=== PATIENT | male | born 1945 | race Caucasian/White ===

== ENCOUNTER 2024-01-31 05:49 | Day surgery (SDC) | payer MEDICARE ==
[2024-01-26 10:17] LABS: BASOPHILS # (AUTO) 0.06 K/uL (0.00-0.20); BASOPHILS % (AUTO) 0.8 % (0.0-5.0); EOSINOPHILS # (AUTO) 0.23 K/uL (0.00-0.70); HEMATOCRIT 41.1 % (42-54); IMMATURE GRANULOCYTE ABSOLUTE 0.04 K/uL (0-1); LYMPHOCYTES # (AUTO) 1.5 K/uL (1.0-4.8); LYMPHOCYTES % (AUTO) 19.6 % (21.0-51.0); MEAN CORPUSCULAR HEMOGLOBIN 31.3 pg (27.0-33.0); MEAN CORPUSCULAR HGB CONC 33.1 g/dL (32.0-36.0); MEAN CORPUSCULAR VOLUME 94.7 fL (79-99); MONOCYTES % (AUTO) 12.5 % (3.0-13.0); NEUTROPHILS # (AUTO) 4.9 K/uL (1.8-7.7); NEUTROPHILS % (AUTO) 63.6 % (40.0-77.0); PLATELET COUNT (AUTO) 235 K/uL (130-400); RED BLOOD CELL COUNT(AUTO) 4.34 MIL/uL (4.50-6.20); RED CELL DISTRIBUTION WIDTH 12.5 % (11.0-15.5); WHITE BLOOD COUNT (AUTO) 7.6 K/uL (4.8-10.8)
[2024-01-26 10:18] VITALS: BP 140/77; PULSE 85; RESP 16
[2024-01-26 10:24] LABS: CREATININE 1.3 mg/dL (0.5-1.3); POTASSIUM 4.9 mmol/L (3.5-5.1)
[2024-01-26 10:57] LABS: INR 1.14 (0.85-1.15); PROTHROMBIN TIME 13.3 SEC (9.6-11.6)
[2024-01-31] VITALS (14 sets, daily range): BP systolic 119–143; BP diastolic 54–72; PULSE 57–71; RESP 14–17
[~2024-01-31] VITALS: Ht 170.2 cm; Wt 88.6 kg
[~2024-01-31 05:49] MED LIST: AEC81 PO; ASCO500C18 PO; ATOR40TA71 PO; CHOL200074 PO; CLOP-31 PO; FAMO20TA8 PO; FURO40TA5 PO; ISOS30TA92 PO; LEVO125T11 PO; LISI2.5T13 PO; METF-444 PO; METO-408 PO; MULT-60 PO; NITR0.4T50 SL; RANO10005 PO; SENN8.6T32 PO; SOTA80TA PO
[2024-01-31] MEDS: CEFAZOLIN SODIUM 2 GM VIAL ONE (06:14)
[2024-01-31] MEDS: LACTATED RINGERS 1000ML 1,000 ML IV ONE (06:15)
[2024-01-31] MEDS ORDERED: MIDAZOLAM HCL 1 MG/ML 2ML VIAL ONE (07:38)
[2024-01-31] MEDS ORDERED: ROCURONIUM BROMIDE 10MG/1ML 5ML VL ONE (07:38)
[2024-01-31] MEDS ORDERED: SUCCINYLCHOLINE CHLORIDE 20 MG/ML 10 ML VIAL ONE (07:38)
[2024-01-31] MEDS ORDERED: LIDOCAINE PF 100MG/5ML (2%) SYRINGE 5ML ONE (07:38)
[2024-01-31] MEDS ORDERED: PROPOFOL 10 MG/ML 20ML VIAL IV ONE (07:38)
[2024-01-31] MEDS ORDERED: FENTANYL CITRATE PF 50 MCG/1 ML 2ML VIAL ONE (07:38)
[2024-01-31] MEDS ORDERED: EPHEDRINE SULFATE 50 MG/ML AMPULE ONE (08:08)
[2024-01-31] MEDS: BUPIVACAINE/PF 0.25% 30ML VIAL IJ ONE (08:20)
[2024-01-31] MEDS: 0.9%NACL 1000ML 1,000 ML IV ONE (08:47)
[2024-01-31] MEDS ORDERED: TRAM50TA4 PO (08:55)
[2024-01-31] MEDS ORDERED: GABA-529 PO (08:55)
[2024-01-31] MEDS ORDERED: DOCU-116 PO (08:55)
== END 2024-01-31 10:30 | disposition home or self-care (01) ==
LOC: DAH 05:49
PROVIDERS: ATTEND Surgery
DX: C41.2 Malignant neoplasm of vertebral column (principal); Z79.01 Long term (current) use of anticoagulants; Z79.899 Other long term (current) drug therapy
CPT/HCPCS: 80048; 85025; 85610; 36415; 93005; 15733; 82948 ×2; 88305; A6260; J0665; A4663; J7030 ×2; J7120; J3010; J0330; J3490 ×2; J2001; J2250; J2704; J0690; A4930; A4215; A4223; A4222; A4221; A6450; A4600

== ENCOUNTER → 2024-08-27 | Outpatient (CLI) | payer MEDICARE ==
[~2024-08-27] MED LIST changes: +DOCU-116 PO; +GABA-529 PO; +TRAM50TA4 PO; +metoPROLOL tartRATE 1 MG/ML 5ML VIAL IV ONE
== END | disposition home or self-care (01) ==
LOC: RAH 10:32
PROVIDERS: ATTEND Internal Medicine Cardiovascular Disease
DX: I25.10 Atherosclerotic heart disease of native coronary artery without angina pectoris (principal); M47.815 Spondylosis without myelopathy or radiculopathy, thoracolumbar region; I35.0 Nonrheumatic aortic (valve) stenosis; Z95.1 Presence of aortocoronary bypass graft; Z98.890 Other specified postprocedural states
CPT/HCPCS: 75574; J3490

== ENCOUNTER → 2025-01-30 | Outpatient (CLI) | payer OTHER ==
[~2025-01-30] MED LIST changes: +IOHEXOL-350 75 ML VIAL IV ONE; -metoPROLOL tartRATE 1 MG/ML 5ML VIAL IV ONE
--- NOTE | 2025-01-30 16:07 | HMCIMG ---
CT ABDOMEN WITH CONTRAST INDICATION: Right upper abdominal pain TECHNIQUE: Routine transaxial images using 5 mm slice thickness were obtained after the intravenous infusion of 75 mL of Omnipaque 350 without adverse effects. Oral contrast was not administered. Rectal contrast was not administered. Coronal and sagittal reformatted images acquired for interpretation. CT was performed with one or more of the following dose reduction techniques: Automated exposure control, adjustment of the mA and/or kV according to patient size, or use of iterative reconstruction technique. COMPARISON: None FINDINGS: Heart size is normal. Visible lung bases are clear. 3.8 cm heterogeneously enhancing mass posterior to the liver just beneath the posterior margin of the right hemidiaphragm near the level of the right adrenal gland. The liver is normal in size and smooth in contour without lesions. Intrahepatic and extrahepatic biliary duct dilation. The spleen is normal in size without lesions. The gallbladder appears normal. Ill-defined pancreatic head mass perhaps measuring up to 3 cm. The adrenal glands appear normal. 4 mm nonobstructing calculus and smaller 3 mm nonobstructing calculus at the mid to upper portion of the left kidney. 4 mm nonobstructing calculus at the midportion of the left kidney with a few adjacent punctate nonobstructing calculi, and 16mm aggregate of nonobstructing calculi at the lower portion of the left kidney. 17 mm exophytic proteinaceous or hemorrhagic cyst arising off the lateral cortical margin of the left kidney at its midportion and smaller 10 mm exophytic proteinaceous or hemorrhagic cyst arising posterolaterally off the mid to lower portion of the right kidney. Cortical nephrograms are symmetric and normal in appearance bilaterally. No evidence for intra-abdominal free air or organized fluid collection. No retrocrural, intraabdominal, or retroperitoneal lymphadenopathy identified. Several diverticula along the distal colon. Mild calcific plaque is noted along the abdominal aortic and iliac vessel paredes without aneurysmal dilation or dissection. Visible osseous structures are intact. IMPRESSION: 1. Pancreatic head mass contributing to intrahepatic and extrahepatic biliary duct dilation as well as gallbladder distention, and also perhaps associated 3.8 cm heterogeneously-enhancing mass posterior to the right hepatic lobe near the dome of the liver. 2. Nonobstructing left nephrolithiasis. 3. 1.4 cm medial limb left adrenal gland nodule, perhaps adenoma rather than metastatic deposit, but for which noncontrast CT imaging will provide baseline Hounsfield units. 4. Distal colon diverticulosis. 5. Additional minor findings and pertinent negatives as reported.
== END | disposition home or self-care (01) ==
LOC: RAH 14:22
PROVIDERS: ATTEND Family Medicine
DX: K57.30 Diverticulosis of large intestine without perforation or abscess without bleeding (principal); N20.0 Calculus of kidney; K82.8 Other specified diseases of gallbladder; R74.01 Elevation of levels of liver transaminase levels; K83.8 Other specified diseases of biliary tract; K76.89 Other specified diseases of liver
CPT/HCPCS: 74160; Q9967